=== PATIENT | male | born 1955 | race Caucasian/White ===

== ENCOUNTER → 2021-03-02 11:20 | Outpatient (CLI) | payer MEDICARE, MEDICAID, SELFPAY ==
--- NOTE | 2021-03-02 11:21 | CA_ITS ---
APPROVED REPORT EXAM: Comprehensive 2D, Doppler, and color-flow Echocardiogram Dining Room Host: Jihan Downey RCS, RVS Ht: 5 ft 9 in Wt: 201lbs BSA: 2.07 BP: 114/78 mmHg Rhythm: Atrial Fibrillation Indications: SOA, 1 month s/p COVID, CAD-stents, COPD 2D Dimensions LVDd 6.36 cm LA Volume 59.80 mL LVOT 2.01 cm (M/F) 1.5-2.5 LA Volume Index 28.90 mL/m2 (M/F) 16-34 M-Mode Dimensions RVDd 1.48 cm (0.9-2.6) LA Diam 4.08 cm (1.9-4.0) LVDd 7.34 cm (3.5-5.7) Ao Diam 3.70 cm (2.0-3.7) LVDs 6.16 cm (3.5-5.7) IVSd 0.87 cm (0.6-1.1) PWd 0.95 cm (0.6-1.1) EF (Teich) 32.80% EPSs 3.28 cm FS 16.10% EDV (Teich) 284.20 mL TAPSE 1.88 (<1.7) ESV (Teich) 191.10 mL LV Diastology E Decel Time 100.00 (160-240 msec) E/A Ratio 2.16 MED E' 3.70 (< 7 cm/sec) MED A' 12.40 cm/s E'/MED E' Ratio 26.95 (>14) LAT E' 2.50 (<10 cm/sec) LAT A' 9.40 cm/s E/LAT E' Ratio 39.88 (>14) Aortic Valve LVOT Max 73.00 (70-110 cm/s) LVOT VTI 13.03 cm AoV Peak Sung. 136.00 (50-130 cm/s) AO Peak GR. 7.40 mmHg AO Mean GR. 3.50 (<5 mmHg) AO VTI 22.64 (18-25 cm) ALEC (VTI) 1.83 (2.5-4.5 cm2) Mitral Valve MV E Max Sung. 100.00 (40-130 cm/s) MV A Velocity 46.00 (40-130 cm/s) E/A Ratio 2.16 MV Decel. Time 100.00 (160-240 ms) MV PHT 29.00 ms Pulmonary Valve PV Peak Velocity 68.00 (50-150 cm/s) Tricuspid Valve TR P. Velocity 158.00 cm/s RAP Estimate 10.00 mmHg RVSP 20.00 mmHg Left Ventricle Left atrium is mildly enlarged, left ventricle is moderately dilated, severe reduced left ventricular systolic function, visually estimated ejection fraction 20%, left ventricle is globally hypokinetic, endocardial surfaces are poorly visualized, superimposed segmental wall motion abnormalities cannot be excluded, Doppler evidence of raise left ventricular end-diastolic pressure and left atrial pressure. Right Ventricle Right atrium and right ventricle are normal size and contractility. Aortic Valve Aortic valve is minimally thickened and fibrosed, there is no aortic stenosis or significant aortic insufficiency. Mitral Valve Mitral valve is minimally thickened, there is mild mitral regurgitation. Tricuspid Valve Tricuspid valve grossly normal, there is mild tricuspid regurgitation, tricuspid regurgitation jet velocity is inadequate for calculation of the right ventricular systolic pressure. Pulmonic Valve Pulmonic valve is poorly visualized. Great Vessels Aortic root is normal size. Inferior vena cava normal size with normal inspiratory collapse. Pericardium No significant pericardial effusion noted. Conclusion 1. Moderately enlarged left atrium, dilated left ventricle, severe reduced left ventricular systolic function, visually estimated ejection fraction 20% left ventricle is globally hypokinetic, superimposed segmental wall motion abnormalities cannot be excluded, Doppler evidence of late left ventricular end-diastolic pressure as well as the left atrial pressure. 2. Mild mitral and tricuspid regurgitation. 3. No significant pericardial effusion noted. 4. Inferior vena cava is normal size with normal inspiratory collapse. Electronically signed by : Greg Baker MD 03/02/2021 20:58:00
== END ==
PROVIDERS: PCP Physician Assistant Medical; Visit Provider Urology
DX: F17.200 Nicotine dependence, unspecified, uncomplicated (principal); G47.9 Sleep disorder, unspecified; J44.9 Chronic obstructive pulmonary disease, unspecified; R06.00 Dyspnea, unspecified; R07.89 Other chest pain; R40.0 Somnolence
CPT/HCPCS: 93306

== ENCOUNTER → 2021-03-09 10:15 | Outpatient (CLI) | payer MEDICARE, MEDICAID, SELFPAY ==
[2021-03-09 10:40] LABS: Basophils # 0.2 K/mm3 (0-0.2); Basophils % 1.6 % (0.1-2.0); Eosinophils # 0.4 K/mm3 (0.0-0.4); Eosinophils % 3.3 % (0.1-12.0); Hematocrit 49.5 % (42.0-52.0); Hemoglobin 16.2 g/dL (14.1-18.0); Lymphocytes # 3.4 K/mm3 (0.7-4.5); Lymphocytes % 29.5 % (10-50); Mean Corpuscular HGB Conc 32.7 g/dL (31.8-35.4); Mean Corpuscular Hemoglobin 32.8 pg (27.0-31.2); Mean Corpuscular Volume 100.4 fl (80-94); Mean Platelet Volume 7.9 fl (7.4-10.4); Monocytes # 0.8 K/mm3 (0.1-1.0); Monocytes % 6.5 % (1.7-9.3); Neutrophils # 6.8 K/mm3 (1.8-7.8); Neutrophils % 59.1 % (37.0-80.0); Platelet Count 335 K/mm3 (142-424); Red Blood Count 4.93 M/mm3 (4.60-6.20); Red Cell Distribution Width 15.7 % (11.5-17.5); White Blood Count 11.5 K/mm3 (4.8-10.8)
[2021-03-09 11:09] LABS: Blood Urea Nitrogen 19 mg/dl (9-20); Calcium 9.4 mg/dl (8.4-10.2); Carbon Dioxide 29 mmol/L (22.0-30.0); Chloride 101 mmol/L (98-107); Estimated Glomerular Filt Rate 75 ml/min (>60); GFR (African American) 91 ML/MIN (>60); Glucose 108 mg/dl (74-100); Sodium 138 mmol/L (136-145)
== END ==
PROVIDERS: Visit Provider Nurse Practitioner Family
DX: Z01.812 Encounter for preprocedural laboratory examination; Z11.52 Encounter for screening for COVID-19; U07.1 COVID-19; R06.00 Dyspnea, unspecified; I25.118 Atherosclerotic heart disease of native coronary artery with other forms of angina pectoris; I50.20 Unspecified systolic (congestive) heart failure; R60.0 Localized edema; F17.200 Nicotine dependence, unspecified, uncomplicated
CPT/HCPCS: 36415; 80048; 85025; C9803; U0003; U0005

== ENCOUNTER 2021-03-13 09:14 | Day surgery (SDC) | payer MEDICARE, MEDICAID, SELFPAY ==
[2021-03-13] VITALS (13 sets, daily range): BP systolic 100–207; BP diastolic 80–108; PULSE 85–98; RESP 16–18; TEMP 36.6; O2SAT 91–97; BMI 31.0
--- NOTE | 2021-03-13 | IR_ITS ---
APPROVED REPORT Patient Location: Outpatient PROCEDURES Left heart catheterization Left ventriculogram Selective coronary angiogram INDICATION New onset cardiomyopathy ejection fraction 25% Informed consent was obtained prior to the procedure. COMPLICATIONS NONE Estimated Blood Loss: LESS THAN 10 ML TECHNIQUE One percent lidocaine used to anesthetize the right anterior aspect of the wrist. The right radial artery was accessed via the Seldinger technique. A 6 German sheath was placed in the right radial artery. 2.5 mg of verapamil, 800 mcg of nitroglycerin, 1mg Lidocaine and 5000 U Heparin were given through the arterial sheath. The Poppa catheter was also used to perform left heart catheterization, left ventriculogram and selective coronary angiogram. At the end of the procedure the sheath was removed good hemostasis was achieved using Traclet band, patient was transferred to the postop holding area in stable condition. ANGIOGRAPHIC RESULTS The left main artery short and normal The left anterior descending artery normal The circumflex artery dominant and normal The right coronary artery [id number] yet still large and normal The ERIC ventriculogram reveals Severely dilated with diffuse hypokinesis. 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 Standard therapy for systolic heart failure 2. Consider LifeVest while treating systolic heart failure 3. Evaluation for AICD once medical management has been performed and if ejection fraction remains low Electronically signed by : James Gomes MD 03/13/2021 10:52:15
== END 2021-03-13 14:02 | disposition home or self-care (01) ==
LOC: CATHLAB 09:19
PROVIDERS: PCP Physician Assistant Medical; Visit Provider Internal Medicine
DX: I42.9 Cardiomyopathy, unspecified (principal); I50.22 Chronic systolic (congestive) heart failure; I48.0 Paroxysmal atrial fibrillation; R06.00 Dyspnea, unspecified; F17.200 Nicotine dependence, unspecified, uncomplicated
CPT/HCPCS: 93458; 99152; C1725; C1769; J1644; Q9967

== ENCOUNTER → 2021-04-07 09:32 | Outpatient (CLI) | payer MEDICARE, MEDICAID, SELFPAY ==
[2021-04-07 10:21] LABS: Chloride 100 mmol/L (98-107); Potassium 5.1 mmoL/L (3.5-5.1); Sodium 139 mmol/L (136-145)
[2021-04-07 10:24] LABS: Blood Urea Nitrogen 21 mg/dl (9-20); Estimated Glomerular Filt Rate 75 ml/min (>60); GFR (African American) 91 ML/MIN (>60)
[2021-04-07 10:25] LABS: Anion Gap 11.1 mEq/L (5-15); Calcium 9.7 mg/dl (8.4-10.2); Carbon Dioxide 33 mmol/L (22.0-30.0); Glucose 104 mg/dl (74-100)
== END ==
PROVIDERS: Visit Provider Urology
DX: F17.200 Nicotine dependence, unspecified, uncomplicated (principal); I25.118 Atherosclerotic heart disease of native coronary artery with other forms of angina pectoris; I48.0 Paroxysmal atrial fibrillation; I50.22 Chronic systolic (congestive) heart failure; J44.9 Chronic obstructive pulmonary disease, unspecified; R06.00 Dyspnea, unspecified; R60.0 Localized edema
CPT/HCPCS: 36415; 80048

== ENCOUNTER → 2021-05-14 09:25 | Outpatient (CLI) | payer MEDICARE, MEDICAID, SELFPAY | PROVIDERS: PCP Physician Assistant Medical; Visit Provider Urology | DX: R06.00 Dyspnea, unspecified (principal); R42 Dizziness and giddiness; I50.22 Chronic systolic (congestive) heart failure | CPT/HCPCS: 93308 ==

== ENCOUNTER → 2021-06-04 09:07 | Outpatient (CLI) | payer MEDICARE, MEDICAID, SELFPAY ==
--- NOTE | 2021-06-04 09:08 | CA_ITS ---
APPROVED REPORT EXAM: Limited 2D Echocardiogram Eeg Technologist: Blossom Velasco RVT Ht: 5 ft 9 in Wt: 215lbs BSA: 2.13 BP: 103/62 mmHg Indications: EF CHECK 30-35% ON 05/04/21, PT HAD LIFEVEST THAT HE QUIT WEARING,SOA 2D Dimensions LVOT 2.77 cm (M/F) 1.5-2.5 M-Mode Dimensions RVDd 2.60 cm (0.9-2.6) LA Diam 4.12 cm (1.9-4.0) LVDd 5.67 cm (3.5-5.7) Ao Diam 3.79 cm (2.0-3.7) LVDs 4.60 cm (3.5-5.7) IVSd 1.00 cm (0.6-1.1) PWd 0.89 cm (0.6-1.1) EF (Teich) 38.50% FS 18.90% EDV (Teich) 158.10 mL ESV (Teich) 97.30 mL Conclusion 1. Limited echocardiogram was performed to evaluate left ventricular systolic function, left ventricle is normal size, visually estimated ejection fraction 30% left ventricle is globally hypokinetic. 2. No significant pericardial effusion noted. Electronically signed by : Greg Baker MD 06/05/2021 11:44:56
== END ==
PROVIDERS: PCP Physician Assistant Medical; Visit Provider Urology
DX: R06.00 Dyspnea, unspecified (principal); R42 Dizziness and giddiness; I25.10 Atherosclerotic heart disease of native coronary artery without angina pectoris; I50.22 Chronic systolic (congestive) heart failure; R60.0 Localized edema; F17.200 Nicotine dependence, unspecified, uncomplicated
CPT/HCPCS: 93308